=== PATIENT | female | born 1990 | race Caucasian/White ===

== ENCOUNTER 2016-07-08 16:03 | Emergency (ER) | payer SELFPAY ==
--- NOTE | 2016-07-08 16:54 | ER Document Report ---
ED Medical Screen (RME) - General Chief Complaint: Vaginal Bleeding Stated Complaint: VAGINAL BLEEDING,ABDOMINAL PAIN Time seen by provider: 16:53 Mode of Arrival: Ambulatory Information source: Patient TRAVEL OUTSIDE OF THE [place] IN LAST 30 DAYS: No - HPI Patient complains to provider of: heavy vaginal bleeding with clots and pelvic cramping Onset: This morning Onset/Duration: Sudden Quality of pain: Achy, Cramping Severity: Mild Pain Level: 1 Associated Symptoms: Vaginal bleeding Exacerbated by: Denies Relieved by: Denies Similar symptoms previously: No Recently seen / treated by doctor: No Notes: 07/08/16 16:53 Patient is a 26-year-old female with no past medical history, who presents to the emergency room complaining of heavy vaginal bleeding, with cramps and passage of blood clots, low back pain, nausea, breast soreness and fullness, symptoms started around 11 AM today, she reports abnormal menstrual cycle, last menstrual period was sometime in May, she did not take a home test but is concerned that maybe she is having a miscarriage Past Medical History Renal/ Medical History: Denies: Hx Peritoneal Dialysis Physical Exam - Vital signs Vitals: Temp Pulse Resp BP Pulse Ox 98.8 F 100 16 149/100 H 98 07/08/16 16:07 07/08/16 16:07 07/08/16 16:07 07/08/16 16:07 07/08/16 16:07 Course - Vital Signs Vital signs: Temp Pulse Resp BP Pulse Ox 98.8 F 100 16 149/100 H 98 07/08/16 16:07 07/08/16 16:07 07/08/16 16:07 07/08/16 16:07 07/08/16 16:07
[2016-07-08 17:27] LABS: ABSOLUTE BASOPHILS # (AUTO) 0.1 10^3/uL (0.0-0.2); ABSOLUTE EOSINOPHILS # (AUTO) 0.3 10^3/uL (0.0-0.6); ABSOLUTE LYMPHOCYTES (AUTO) 3.3 10^3/uL (0.5-4.7); ABSOLUTE MONOCYTES (AUTO) 0.8 10^3/uL (0.1-1.4); ABSOLUTE NEUT (AUTO) 5.2 10^3/uL (1.7-8.2); BASOPHILS % (AUTO) 0.8 % (0-2); EOSINOPHILS % (AUTO) 2.6 % (0-6); HEMATOCRIT 43.7 % (36.0-47.0); HGB HCT DIFFERENCE 1.3; LYMPHOCYTES % (AUTO) 34.2 % (13-45); MEAN CORPUSCULAR HEMOGLOBIN 29.7 pg (27.0-33.4); MEAN CORPUSCULAR HGB CONC 34.3 g/dL (32.0-36.0); MEAN CORPUSCULAR VOLUME 87 fl (80-97); MONOCYTES % (AUTO) 8.1 % (3-13); RED BLOOD COUNT 5.05 10^6/uL (3.72-5.28); RED CELL DISTRIBUTION WIDTH 13.7 % (11.5-14.0); SEGMENTED NEUTROPHILS % (AUTO) 54.3 % (42-78); WHITE BLOOD COUNT 9.7 10^3/uL (4.0-10.5)
[2016-07-08 17:33] LABS: APPEARANCE,URINE CLEAR; BILIRUBIN,URINE NEGATIVE (NEGATIVE); GLUCOSE, URINE NEGATIVE (NEGATIVE); KETONES,URINE NEGATIVE (NEGATIVE); LEUKOCYTE ESTERASE,URINE NEGATIVE (NEGATIVE); NITRITE,URINE NEGATIVE (NEGATIVE); PROTEIN,URINE NEGATIVE (NEGATIVE); URINE SPECIFIC GRAVITY 1.006; UROBILINOGEN,URINE NEGATIVE mg/dL (<2.0)
[2016-07-08 17:47] LABS: ALANINE AMINOTRANSFERASE 106 U/L (9-52); ALBUMIN 4.7 g/dL (3.5-5.0); ALKALINE PHOSPHATASE 95 U/L (38-126); ANION GAP 15 (5-19); ASPARTATE AMINO TRANSFERASE 44 U/L (14-36); BILIRUBIN,DIRECT 0.1 mg/dL (0.0-0.4); BILIRUBIN,TOTAL 0.5 mg/dL (0.2-1.3); BLOOD UREA NITROGEN 8 mg/dL (7-20); CALCIUM 10.2 mg/dL (8.4-10.2); CARBON DIOXIDE 24 mmol/L (22-30); CHLORIDE 104 mmol/L (98-107); CREATININE RESULT 0.76 mg/dL (0.52-1.25); GLUCOSE 87 mg/dL (75-110); POTASSIUM 4.8 mmol/L (3.6-5.0); SODIUM 142.6 mmol/L (137-145); TOTAL PROTEIN 7.6 g/dL (6.3-8.2)
--- NOTE | 2016-07-08 19:52 | ER Document Report ---
ED GI/ - General Mode of Arrival: Ambulatory Information source: Patient TRAVEL OUTSIDE OF THE [place] IN LAST 30 DAYS: No - HPI Patient complains to provider of: Vaginal bleeding Onset: This afternoon Timing/Duration: Sudden, Better Quality of pain: Sharp Location: Suprapubic Vaginal bleeding (Compared to normal period): Severe Menstrual period history: Irregular <OTTONIEL VASQUEZ - Last Filed: 07/08/16 20:54> <SUKHWINDER CHAU - Last Filed: 07/11/16 05:50> - General Chief Complaint: Vaginal Bleeding Stated Complaint: VAGINAL BLEEDING,ABDOMINAL PAIN Notes: Patient 26-year-old female presenting to the emergency department concerned of vaginal bleeding onset with mild spotting 2 days ago, but acutely worse this afternoon. Patient states that she felt a sharp pain in her abdomen, and when she stood up blood started pouring down her legs. Patient states she had to scrubber carpet cleaning. Patient states the bleeding has now subsided. Patient also mentions that ever since she is given to her son, she's developed facial hair. Patient also states that her mom's history of stage IV Cancer of the uterus, which had to be removed in her 20s. Patient thought that she might have been and having a miscarriage despite having not taken a test. (OTTONIEL VASQUEZ) - Related Data Allergies/Adverse Reactions: sulfamethoxazole [From Bactrim] Allergy (Verified 07/08/16 16:58) trimethoprim [From Bactrim] Allergy (Verified 07/08/16 16:58) Past Medical History - General Information source: Patient Last Menstrual Period: unknown - Social History Smoking Status: Current Every Day Smoker Chew tobacco use (# tins/day): No Frequency of alcohol use: Rare Drug Abuse: None Family History: Reviewed & Not Pertinent Patient has suicidal ideation: No Patient has homicidal ideation: No Surgical Hx: Negative - Immunizations Hx Diphtheria, Pertussis, Tetanus Vaccination: - unknown <OTTONIEL VASQUEZ - Last Filed: 07/08/16 20:54> Review of Systems - Review of Systems Constitutional: No symptoms reported EENT: No symptoms reported Cardiovascular: No symptoms reported Respiratory: No symptoms reported Gastrointestinal: See HPI, Abdominal pain - Suprapubic pain Genitourinary: No symptoms reported Female Genitourinary: See HPI, Heavy/abnormal periods, Irregular period, Vaginal bleeding Musculoskeletal: No symptoms reported Skin: See HPI, Change in hair/nails - Facial hair since son, Other Hematologic/Lymphatic: No symptoms reported Neurological/Psychological: No symptoms reported -: Yes All other systems reviewed and negative <OTTONIEL VASQUEZ - Last Filed: 07/08/16 20:54> Physical Exam - General General appearance: Appears well, Alert - HEENT Head: Normocephalic, Atraumatic Eyes: Normal Pupils: PERRL - Respiratory Respiratory status: No respiratory distress Chest status: Nontender Breath sounds: Normal Chest palpation: Normal - Cardiovascular Rhythm: Regular Heart sounds: Normal auscultation Murmur: No - Abdominal Inspection: Obese Distension: No distension Bowel sounds: Normal Tenderness: Nontender Organomegaly: No organomegaly - Back Back: Normal, Nontender - Extremities General upper extremity: Normal inspection, Nontender General lower extremity: Normal inspection, Nontender - Neurological Neuro grossly intact: Yes Cognition: Normal Orientation: AAOx4 Kofi Coma Scale Eye Opening: Spontaneous [place] Coma Scale Verbal: Oriented [place] Coma Scale Motor: Obeys Commands [place] Coma Scale Total: 15 Speech: Normal - Psychological Associated symptoms: Normal affect, Normal mood - Skin Skin Temperature: Warm Skin Moisture: Dry Skin Color: Normal <OTTONIEL VASQUEZ - Last Filed: 07/08/16 20:54> Course - Laboratory Result Diagrams: 07/08/16 17:05 07/08/16 17:05 <OTTONIEL VASQUEZ - Last Filed: 07/08/16 20:54> - Laboratory Result Diagrams: 07/08/16 17:05 07/08/16 17:05 <SUKHWINDER CHAU - Last Filed: 07/11/16 05:50> - Re-evaluation Re-evalutation: 07/09/16 00:04 Patient presents the emergency department with a chief complaint of vaginal bleeding that has now subsided. She said that she hasn't got a regular period since her 2 years ago. She has a history of dysfunctional uterine bleeding has not followed up with [facility] physician. She says this. His like a regular menstrual cycle except that she doesn't normally get up.. She also wants to know why she has facial hair growing. Talked to her about possibility of having polycystic ovarian syndrome although she hasn't been diagnosed with that. She states that the vaginal bleeding has subsided she is not hypotensive she is not tachycardic or H&H are stable. No emergent need for transfusion. Abdomen is soft no acute guarding rebound rigidity will be discharge follow-up with [facility] physician to 3 days and discussed reasons for ED return sooner (SUKHWINDER CHAU) - Vital Signs Vital signs: Temp Pulse Resp BP Pulse Ox 97.6 F 71 18 127/89 H 97 07/08/16 20:10 07/08/16 20:10 07/08/16 20:10 07/08/16 20:10 07/08/16 20:10 - Laboratory Laboratory results interpreted by me: 07/08/16 07/08/16 17:05 17:05 AST 44 H ALT 106 H Urine Blood SMALL H Discharge <OTTONIEL VASQUEZ - Last Filed: 07/08/16 20:54> <SUKHWINDER CHAU - Last Filed: 07/11/16 05:50> - Discharge Clinical Impression: dysfunction uterine bleeding Condition: Stable Disposition: HOME, SELF-CARE Additional Instructions: Vaginal Bleeding You are having an episode of abnormal bleeding. Causes of abnormal vaginal bleeding can include miscarriage or tubal , tumors such as cancer or benign fibroids, medication effects, or hormone imbalance. Testing can eliminate unsuspected , tumors, or infection as a cause. "Dysfunctional uterine bleeding" is due to hormone imbalance, and is especially common at times when the normal cycle is disturbed -- whether by recent , use of control pills or hormones, or impending menopause. If the bleeding is innocent, most commonly a short course of hormones is given to restore the uterus to normal. Sometimes, the normal menstrual cycle corrects itself naturally. Sometimes , brief hormone therapy, or even a D&C is required. Your physician will advise you. Treatment for anemia may be required if bleeding is severe. You should rest and avoid intercourse until the bleeding is controlled. Call the doctor or return for re-examination if you feel faint, have increasing pain, or have a major increase in the amount of bleeding. Referrals: AURORA GARG MD [Primary Care Provider] - (Call in the a.m. to have a follow -up appointment in 2-3 days return for increasing worsening or new symptoms) SHRUTI VASQUEZ MD [ACTIVE STAFF] - (Call in a.m. for a follow up appointment to be seen in 3-4 days return for increasing worsening or new symptoms) Scribe Attestation: 07/08/16 19:55 I personally performed the services described in the documentation reviewed the documentation recorded by my scribe in my presence and it accurately and completely records my words and actions (SUKHWINDER CHAU) Scribe Documentation - Scribe Written by Scribe:: Ottoniel Vasquez 07/08/[id number] acting as scribe for :: Dr. Chau <OTTONIEL VASQUEZ - Last Filed: 07/08/16 20:54>
[2016-07-08 20:14] VITALS: BP 127/89
== END 2016-07-08 20:10 | disposition home or self-care (01) ==
LOC: ER 16:03
DX: N93.8 Other specified abnormal uterine and vaginal bleeding (principal); L68.0 Hirsutism; R10.30 Lower abdominal pain, unspecified; F17.200 Nicotine dependence, unspecified, uncomplicated; Z88.1 Allergy status to other antibiotic agents; Z80.49 Family history of malignant neoplasm of other genital organs
CPT/HCPCS: 36415; 80053; 81001; 84702; 85025; 86900; 86901; 87086; 87088; 99284